=== PATIENT | male | born 1995 | race Caucasian/White ===

== ENCOUNTER 2019-05-19 14:25 | Emergency (ER) | payer OTHER ==
[~2019-05-19] VITALS: Ht 177.8 cm; Wt 63.5 kg
[~2019-05-19 14:25] MED LIST: COMPAZINE10 MG PO
== END 2019-05-19 14:45 | disposition home or self-care (01) ==
LOC: ER 14:25
DX: T63.301A Toxic effect of unspecified spider venom, accidental (unintentional), initial encounter (principal)
CPT/HCPCS: 99281